=== PATIENT | male | born 1995 | race Caucasian/White ===

== ENCOUNTER 2025-01-31 07:40 | Day surgery (SDC) | payer BC ==
[2025-01-30 09:02] VITALS: BMI 44.7
[2025-01-31 08:09] VITALS: TEMP 97.8
[2025-01-31] MEDS: LACTATED RINGERS 1,000 ML IV SCH (08:12)
[2025-01-31] MEDS: IV FLUID CONTINUATION 1,000 ML IV ONE (08:13)
[2025-01-31] MEDS ORDERED: PROPOFOL 10 MG/ML 20 ML VIAL IV ONE (08:22)
--- NOTE | 2025-01-31 08:26 | P.GSHP ---
History of Present Illness H&P Date: 01/31/25 Chief Complaint: Rectal bleeding Is a 29-year-old male whose had intermittent history of rectal bleeding. Patient notes his blood Topol and when he wipes himself. This has been going on for several months. Past Medical History Past Medical History: No Reported History Additional Past Medical History / Comment(s): RECENT BLEEDING WITH BM History of Any Multi-Drug Resistant Organisms: None Reported Past Surgical History: No Surgical Hx Reported Past Anesthesia/Blood Transfusion Reactions: No Reported Reaction Smoking Status: Never smoker - Past Family History Mother Family Medical History: No Reported History Medications and Allergies Home Medications Medication Instructions Recorded Confirmed Type Escitalopram [Lexapro] 10 mg PO HS 01/30/25 01/30/25 History OXcarbazepine [Trileptal] 600 mg PO HS 01/30/25 01/30/25 History Allergies Allergy/AdvReac Type Severity Reaction Status Date / Time No Known Allergies Allergy Verified 01/31/25 07:58 Surgical - Exam Vital Signs Temp Pulse Resp BP Pulse Ox 97.8 F 78 18 124/64 94 L 01/31/25 08:08 01/31/25 08:08 01/31/25 08:08 01/31/25 08:08 01/31/25 08:08 - General well developed, well nourished, no distress - Eyes PERRL - ENT normal pinna - Neck no masses - Respiratory normal expansion - Cardiovascular Rhythm: regular - Abdomen Abdomen: soft, non tender Assessment and Plan Assessment: History of rectal bleeding. Will perform colonoscopy.
--- NOTE | 2025-01-31 08:38 | P.OP ---
Date of Procedure: 01/31/25 Preoperative Diagnosis: Rectal bleeding Postoperative Diagnosis: Internal hemorrhoids Diverticulosis Procedure(s) Performed: Colonoscopy Anesthesia: MAC Surgeon: Rashard Mendez Pathology: none sent Condition: stable Disposition: PACU Description of Procedure: Patient was placed on the endoscopy table in the lateral position. He received IV sedation. Digital rectal exams performed. There were internal hemorrhoids noted. The flexible colonoscope was then placed patient anus and passed throughout the entire colon. The ileocecal valve was visualized. The cecum, ascending and transverse colon appeared normal. In the descending and sigmoid colon there was mild diverticular changes. Scope was brought back to the rectum this appeared normal. Scope withdrawn through the anus and internal hemorrhoids were noted. There was no evidence of any active GI bleed. It is presumed patient may have h ad bleeding from internal hemorrhoids.
[2025-01-31 08:52] VITALS: BP 141/60; RESP 16
[2025-01-31 09:02] VITALS: PULSE 70
== END 2025-01-31 09:38 | disposition home or self-care (01) ==
LOC: ORWHC2ENDO 07:40
PROVIDERS: ATTEND Surgery
DX: K64.8 Other hemorrhoids (principal); K57.30 Diverticulosis of large intestine without perforation or abscess without bleeding
CPT/HCPCS: 45378; J2704